=== PATIENT | female | born 1950 | race Caucasian/White ===

== ENCOUNTER → 2019-06-21 | Outpatient (CLI) | payer MEDICARE, OTHER, SELFPAY | PROVIDERS: Family Provider Electrodiagnostic Medicine; Visit Provider Electrodiagnostic Medicine | DX: M85.80 Other specified disorders of bone density and structure, unspecified site (principal); Z78.0 Asymptomatic menopausal state | CPT/HCPCS: 77080 ==

== ENCOUNTER → 2019-08-09 09:00 | Outpatient (BNVA) | payer MEDICARE, OTHER, SELFPAY | PROVIDERS: Family Provider Electrodiagnostic Medicine; PCP Electrodiagnostic Medicine; Visit Provider Urology | DX: N39.0 Urinary tract infection, site not specified (principal); B37.3 Candidiasis of vulva and vagina | CPT/HCPCS: 81001 ==

== ENCOUNTER 2020-01-07 08:28 | Outpatient (CLI) | payer MEDICARE, OTHER, SELFPAY ==
--- NOTE | 2020-01-07 08:32 | MM_ITS ---
WS: [id number] Bilateral screening digital mammogram, 01/07/2020 Clinical Data: SCREENING Comparison: 09/14/2018, 07/09/2017, 12/11/2015, 11/08/2014, 10/26/2014, 08/25/2013, 06/25/2012, 04/01/201103/22, 03/21/2009, 03/04/2008, 02/24/2007. Findings: The breast parenchymal pattern shows fibroglandular tissue No spiculated masses or clustered calcific ations are seen. There are no secondary signs of carcinoma. MM/[id number] Impression: 1. Negative bilateral mammogram unchanged. 2. Recommend annual screening mammograms. BIRADS: 1-Negative FOLLOW UP: 1 Year Follow-up The CAD thread checker was used.
== END 2020-01-07 08:29 | disposition home or self-care (01) ==
LOC: RADSHAW 08:29
PROVIDERS: PCP Electrodiagnostic Medicine; Visit Provider Electrodiagnostic Medicine
DX: Z12.31 Encounter for screening mammogram for malignant neoplasm of breast (principal)
CPT/HCPCS: 77067

== ENCOUNTER 2020-02-27 06:44 | Emergency (ER) | payer MEDICARE, OTHER, SELFPAY ==
[2020-02-27 06:50] VITALS: BP 123/72; PULSE 77; RESP 18; TEMP 37.4; O2SAT 96; BMI 24.0
[2020-02-27 06:59] VITALS: BP 127/73; PULSE 73; RESP 18; TEMP 37.4; O2SAT 95
--- NOTE | 2020-02-27 06:59 | XRR_ITS ---
PROCEDURE INFORMATION: Exam: XR Chest, 1 View Exam date and time: 02/27/2020 7:01 AM Age: 70 years old Clinical indication: Fever; Patient HX: Flu like symptoms; Additional info: Cough TECHNIQUE: Imaging protocol: XR of the chest Views: 1 view. COMPARISON: CT chest w con* [id number] 08/02/2015 8:29 AM FINDINGS: Lungs: No consolidation. Pleural space: No significant visible pleural effusion. No pneumothorax. Heart/Mediastinum: No significant cardiomegaly. Bones/joints: No acute finding. XR/XR chest 1V portable [id number] IMPRESSION: No pulmonary consolidation to suggest pneumonia.
--- NOTE | 2020-02-27 07:01 | W.ED.GENADLT ---
HPI - General Adult General: Chief complaint: Headache Stated complaint: COVID SYMPTOMS Time Seen by Provider: 02/27/20 06:49 Source: patient Mode of arrival: ambulatory Limitations: no limitations History of Present Illness: HPI narrative: Mrs. Burns is a nice 70-year-old female who comes in complaining of flulike symptoms. Her symptoms started yesterday afternoon and consisted of headache, fever, sore throat, dry cough and diffuse malaise. Patient is concerned about a COVID-19 infection as she has been exposed although remotely several days ago to someone who did test positive for the virus. The patient denies any neck pain or stiffness, production with her cough, nausea or vomiting or abdominal pain. She does not report any type of urinary symptoms. Patient's fever got up to 101.9 at home but this resolved with Tylenol. Patient states of all her symptoms just hurt generalized muscle aches and pains are the most pronounced. She denies having any chronic medical problems and does not take any immunosuppressive medications. Other than Tylenol she is not tried anything for her symptoms but states that has helped her feel better. Associated symptoms: Reports malaise; Deny chest pain, confusion, diaphoresis, dyspnea, headache(s), nausea, rash, palpitations, syncope or vomiting Review of Systems Const: Reports: fever(s), chills, body aches, fatigue and malaise; Denies: diaphoresis Eyes: Denies: change in vision, blurry vision, photophobia, eye discomfort, eye discharge or eye redness ENMT: Reports: throat pain; Denies: odynophagia, hoarseness, swelling of lips/tongue, ear or mastoid pain, ear discharge, change in hearing or nasal discharge Card: Denies: chest pain, palpitations, irregular heart rhythm, edema, lightheadedness, syncope, pre-syncope, dyspnea on exertion or orthopnea Resp: Reports: non-productive cough; Denies: dyspnea, productive cough, wheezing, hemoptysis or chest congestion GI: Denies: abdominal pain, nausea, vomiting, hematemesis, coffee ground emesis, heartburn, diarrhea, constipation, GI cramping, hematochezia or melena : Denies: flank pain, dysuria, urinary frequency, urinary urgency or hematuria Musc: Denies: neck pain, back pain, extremity pain, extremity swelling, joint pain, joint swelling, joint redness, joint warmth or joint stiffness Skin/Breast: Denies: rash, pruritus, erythema or skin tenderness Neuro: Denies: headache(s), numbness in extremities, weakness in extremities, sensory changes, lack of coordination, difficulty walking, dizziness, vertigo, confusion, Slurred speech present or seizure-like activity Torey/Lymph: Denies: easy bruising, easy bleeding, petechiae, purpura or enlarged lymph nodes All/Imm: Denies: urticaria, throat swelling, tongue swelling, facial swelling or acute wheezing PFSH ED PFSH: Medical History Recurrent urinary tract infection Yeast vaginitis Family History Father , 86 Cancer Lung Mother Atrial fibrillation Social History Smoking and tobacco status: never smoked Alcohol intake: never Marital status: Current occupational status: retired History of recent travel: No Current gender identity: Female Physical Exam Const: COMMON NORMALS: no acute distress, patient oriented x3, no limitations, healthy appearing and well nourished GENERAL APPEARANCE: cooperative, well kempt and well developed HENMT: COMMON NORMALS: normocephalic, atraumatic, external ears normal, EAC's normal and Normal external nose present HEAD & SCALP: normal to inspection, normocephalic and atraumatic FACE & SINUS: normal facial exam and face symmetric NOSE: Normal external nose present and Normal nares present EXTERNAL EAR: Yes external ears normal EXTERNAL AUDITORY CANAL: EAC's normal MOUTH: Normal oral and palatal mucosa present, lip normal and tongue normal Eye: COMMON NORMALS: Equal, round and reactive pupils present and conjunctivae normal GENERAL EYE: appearance normal, both eyes and all related structures ALIGNMENT: Yes alignment normal PERIORBITAL: periorbital findings normal EYELID: eyelids normal CONJUNCTIVA: Yes conjunctivae normal SCLERA: sclerae normal PUPIL: Yes Equal, round and reactive pupils present Neck/C-Spine: COMMON NORMALS: full ROM, no lymphadenopathy, supple, no meningeal signs and no JVD GENERAL: Yes normal visual inspection and Yes trachea midline Chest: COMMONS NORMALS: normal inspection of the chest and normal palpation of entire chest wall Resp: COMMON NORMALS: normal respiratory effort, No retractions, No use of accessory muscles and clear to auscultation bilaterally EFFORT & INSPECTION: Yes able to speak in complete sentences and Yes symmetric chest movement AUSCULTATION: clear to auscultation bilaterally, no crackles, no rales, no rhonchi and no wheezes Cardio: COMMON NORMALS: no JVD, regular rate, regular rhythm, S1 normal heart sound present and S2 normal heart sound present RATE: regular rate RHYTHM: regular rhythm HEART SOUNDS: S1 normal heart sound present, S2 normal heart sound present, no click, no gallops, no murmurs, no rubs and abnormal split S2 GI: COMMON NORMALS: Soft to palpation and No hepatosplenomegaly present PALPATION: Yes Soft to palpation, No Tenderness to palpation present (GI), No Guarding due to palpation present (GI), No Rigid due to palpation, Yes No hepatosplenomegaly present, No Hernia present, No Palpable mass present and No Pulsatile mass present : COMMON NORMALS: Yes no CVA tenderness BLADDER/KIDNEY EXAM: Yes no CVA tenderness EXTERNAL FEMALE EXAM: No Hernia present Back/Pelvis: COMMON NORMALS: no CVA tenderness, thoracic and lumbar spine normal to inspection, no thoracic nor lumbar tenderness and thoraco-lumbar ROM normal Extremity: COMMON NORMALS: normal to inspection, full ROM, capillary refill normal, no joint enlargement, no clubbing, cyanosis or edema and no calf tenderness Neuro: COMMON NORMALS: patient oriented x3, CN's II-XII intact bilaterally, moves all extremities, no focal motor deficits and no sensory deficits noted MENINGEAL SIGNS: Yes no meningeal signs SPEECH: speech normal Psych: COMMON NORMALS: mental status grossly normal, Normal thought process present, cooperative, normal affect, speech normal and activity/motor behavior normal APPEARANCE: Yes well kempt SPEECH: Yes normal speech THOUGHT PROCESS: Normal thought process present Skin: COMMON NORMALS: no rashes or lesions noted, turgor normal, no jaundice, no petechiae and no mottling GENERAL SKIN EXAM: no rashes or lesions noted and turgor normal Course Vital Signs: Vital signs: Vital Signs Temperature 99.4 F 02/27/20 06:59 Pulse Rate 73 02/27/20 06:59 Respiratory Rate 18 02/27/20 06:59 Blood Pressure 127/73 09/06/20 06:59 Pulse Oximetry 95 09/06/20 06:59 MDM - General Adult MDM Narrative: Medical decision making narrative: Epifanio is a nice 70-year-old female who comes in with generalized malaise, muscle aches and pains, headache, fatigue, sore throat and tiredness. Urinalysis I believe this is unlikely the cause but nonetheless we will treat it. The patient has remote COVID-19 exposure and she agrees that she can go home and quarantine herself until her co-test is resulted. The patient is hemodynamically stable shows no sign of sepsis. Believe she is safe for discharge as she understands we will call her with the results of her cover test. She agrees to return if her symptoms change or worsen but at this time the patient looks overall well and I believe is safe for discharge. Lab Data: Labs: Lab Results 02/27/20 02/27/20 02/27/20 Range/Units 06:50 06:50 06:50 WBC 5.1 (4.0-10.0) 10^3/ uL RBC 4.36 (4.1-5.3) 10^6/u L Hgb 13.2 (11.5-15.3) g/dL Hct 40.2 (37.0-47.0) % MCV 92.2 (81-99) fL MCH 30.3 (28.0-34.0) pg MCHC 32.8 (30.0-36.0) g/dL RDW 12.2 (12.1-15.1) % Plt Count 219 (130-400) 10^3/c mm MPV 8.9 (7.4-10.4) fL Neut % (Auto) 72.7 % Lymph % (Auto) 15.5 % Winston % (Auto) 10.0 % Eos % (Auto) 0.8 % Baso % (Auto) 0.6 % Neut # (Auto) 3.70 (1.8-7.7) 10^3/u L Lymph # (Auto) 0.8 (0.8-4.8) 10^3/u L Winston # (Auto) 0.5 (0.2-0.9) 10^3/u L Eos # (Auto) 0.0 (0.0-0.8) 10^3/u L Baso # (Auto) 0.0 (0.0-0.1) 10^3/u L Nucleated RBC % (a uto) 0 % Nucleated RBCs # 0.0 /100WBC Sodium 139 (136-145) mmol/L Potassium 4.1 (3.5-5.1) mmol/L Chloride 105 (98-107) mmol/L Carbon Dioxide 24 (22-29) mmol/L Anion Gap 14.1 (5-19) BUN 10 (8-23) mg/dL Creatinine 0.8 (0.5-0.9) mg/dL GFR Calculation 71.1 L (90-130) mL/min Glucose 103 (65-115) mg/dL Calculated Osmolal ity 284 L (285-295) mOsm/k g Lactic Acid 0.8 (0.5-2.2) mmol/L Calcium 8.9 (8.5-10.5) mg/dL Magnesium 2.0 (1.7-2.3) mg/dL Total Bilirubin 0.6 (0.15-1.2) mg/dL AST 36 H (0-32) U/L ALT 26 (0-33) U/L Alkaline Phosphata se 108 H (35-105) IU/L Total Protein 7.1 (6.6-8.7) g/dL Albumin 3.9 (3.5-5.2) g/dL Globulin 3.2 (1.3-4.6) g/dL Urine Color (Yellow) Urine Appearance (CLEAR) Urine pH (5-7) Ur Specific Gravit y (1.005-1.030) Urine Protein (Negative) Urine Glucose (UA) (Normal) Urine Ketones (Negative) Urine Blood (Negative) Urine Nitrate (Negative) Urine Bilirubin (NEGATIVE) Urine Urobilinogen (Negative) mg/dL Ur Leukocyte Christy ase (Negative) Urine RBC (0-2) /hpf Urine WBC (0-5) /hpf Ur Squamous Epith Cells (0-5) Amorphous Sediment Urine Bacteria (NONE) Influenza Type A A g (Negative) Influenza Type B A g (Negative) Group A Strep Rapi d (Negative) 02/27/20 02/27/20 02/27/20 Range/Units 07:10 07:10 08:27 WBC (4.0-10.0) 10^3/ uL RBC (4.1-5.3) 10^6/u L Hgb (11.5-15.3) g/dL Hct (37.0-47.0) % MCV (81-99) fL MCH (28.0-34.0) pg MCHC (30.0-36.0) g/dL RDW (12.1-15.1) % Plt Count (130-400) 10^3/c mm MPV (7.4-10.4) fL Neut % (Auto) % Lymph % (Auto) % Winston % (Auto) % Eos % (Auto) % Baso % (Auto) % Neut # (Auto) (1.8-7.7) 10^3/u L Lymph # (Auto) (0.8-4.8) 10^3/u L Winston # (Auto) (0.2-0.9) 10^3/u L Eos # (Auto) (0.0-0.8) 10^3/u L Baso # (Auto) (0.0-0.1) 10^3/u L Nucleated RBC % (a uto) % Nucleated RBCs # /100WBC Sodium (136-145) mmol/L Potassium (3.5-5.1) mmol/L Chloride (98-107) mmol/L Carbon Dioxide (22-29) mmol/L Anion Gap (5-19) BUN (8-23) mg/dL Creatinine (0.5-0.9) mg/dL GFR Calculation (90-130) mL/min Glucose (65-115) mg/dL Calculated Osmolal ity (285-295) mOsm/k g Lactic Acid (0.5-2.2) mmol/L Calcium (8.5-10.5) mg/dL Magnesium (1.7-2.3) mg/dL Total Bilirubin (0.15-1.2) mg/dL AST (0-32) U/L ALT (0-33) U/L Alkaline Phosphata se (35-105) IU/L Total Protein (6.6-8.7) g/dL Albumin (3.5-5.2) g/dL Globulin (1.3-4.6) g/dL Urine Color Yellow (Yellow) Urine Appearance Sl hazy (CLEAR) Urine pH 7 (5-7) Ur Specific Gravit y 1.005 (1.005-1.030) Urine Protein Neg (Negative) Urine Glucose (UA) Norm (Normal) Urine Ketones Negative (Negative) Urine Blood Neg (Negative) Urine Nitrate Negative (Negative) Urine Bilirubin Neg (NEGATIVE) Urine Urobilinogen Norm (Negative) mg/dL Ur Leukocyte Christy ase Trace H (Negative) Urine RBC None (0-2) /hpf Urine WBC 5-10 H (0-5) /hpf Ur Squamous Epith Cells 5-10 H (0-5) Amorphous Sediment Not Reportable Urine Bacteria 2+ H (NONE) Influenza Type A A g Negative (Negative) Influenza Type B A g Negative (Negative) Group A Strep Rapi d Negative (Negative) Imaging Data^: CXR: Attestation: I personally reviewed and interpreted this imaging study as follows: My impression: Possible mild interstitial prominence. No focal infiltrates, no pneumothorax, normal heart size. Discharge Plan Discharge Patient Disposition: Home Clinical Impression: Acute viral syndrome, Acute UTI Condition: Stable Prescriptions: New Cipro 500 mg tablet 500 mg PO BID Qty: 14 RF: 0 No Action sulfamethoxazole-trimethoprim 800-160 mg tablet 1 tab PO BID PRNRF: 0 lutein 10 mg tablet 10 mg PO DAILY RF: 0 SILCA capsule PO DAILY RF: 0 cholecalciferol (vitamin D3) 2,000 unit tablet 2,000 unit PO DAILY RF: 0 mecobalamin (vitamin B12) 5,000 mcg tablet,disintegrating PO DAILY RF: 0 Adult Probiotic 3 billion cell capsule 3,000 mmu cells PO DAILY RF: 0 magnesium oxide 400 mg magnesium capsule 400 mg PO DAILY RF: 0 fluconazole 150 mg tablet 150 mg PO .PRN Qty: 3 RF: 3 Discharge Orders: Discharge Order (Routine); Ordered 02/27/20 Ordered By: Cordelia Lamas Referrals: Ryan Milian DO [Primary Care Provider] - 1-3 days Discharge Diet: Advance as tolerated Discharge Activity: Increase activity as tolerated Patient Instructions: Viral Syndrome (ED) Activity Restrictions/Additional Instructions: Please return to the ER immediately for any of the signs or symptoms listed on your discharge instruction sheets, worsening/changing of your symptoms, you are not getting better as quickly as expected, or for ANY other cause or concerns. Please return to the ER for uncontrolled fever, vomiting, worsening of your symptoms, or for any other cause for concern. We will call you to inform you of the results are not COVID-19 test. Keep yourself at home and quarantined and away from others until you get the results of your test. The results of your testing could take 48 to 72 hours to result. Coding Level of Care Code ED Foreign Food Cook Specialty for Chg Fwd Exam Comprehensive
[2020-02-27] MEDS: sodium chloride 0.9% 1,000 ML 999 ML IV (07:06)
[2020-02-27 07:16] LABS: Basophils % 0.6 %; Eosinophils % 0.8 %; Hematocrit 40.2 % (37.0-47.0); Hemoglobin 13.2 g/dL (11.5-15.3); Lymphocytes # 0.8 10^3/uL (0.8-4.8); Lymphocytes % 15.5 %; Mean Corpuscular HGB Conc 32.8 g/dL (30.0-36.0); Mean Corpuscular Hemoglobin 30.3 pg (28.0-34.0); Mean Corpuscular Volume 92.2 fL (81-99); Mean Platelet Volume 8.9 fL (7.4-10.4); Monocytes # 0.5 10^3/uL (0.2-0.9); Neutrophils % 72.7 %; Nucleated Red Blood Cells % 0 %; Platelet Count 219 10^3/cmm (130-400); Red Blood Count 4.36 10^6/uL (4.1-5.3); Red Cell Distribution Width 12.2 % (12.1-15.1); White Blood Count 5.1 10^3/uL (4.0-10.0)
[2020-02-27 07:25] LABS: Alanine Aminotransferase 26 U/L (0-33); Albumin Level 3.9 g/dL (3.5-5.2); Alkaline Phosphatase 108 IU/L (35-105); Anion Gap 14.1 (5-19); Aspartate Amino Transferase 36 U/L (0-32); Blood Urea Nitrogen 10 mg/dL (8-23); Calcium 8.9 mg/dL (8.5-10.5); Carbon Dioxide 24 mmol/L (22-29); Chloride 105 mmol/L (98-107); Creatinine Clr Calc Pharmacy 61.0009; Globulin 3.2 g/dL (1.3-4.6); Glomerular Filtration Rate 71.1 mL/min (90-130); Glucose 103 mg/dL (65-115); Osmolality Calculated 284 mOsm/kg (285-295); Potassium 4.1 mmol/L (3.5-5.1); Sodium 139 mmol/L (136-145); Total Bilirubin 0.6 mg/dL (0.15-1.2); Total Protein 7.1 g/dL (6.6-8.7)
[2020-02-27 07:26] LABS: Lactic Sepsis W/Reflex 0.8 mmol/L (0.5-2.2)
[2020-02-27 07:34] LABS: Rapid Strep A Test Negative (Negative)
[2020-02-27 08:05] LABS: Influenza A by IFA Negative (Negative); Influenza B by IFA Negative (Negative)
[2020-02-27 08:34] LABS: Bilirubin Urine Neg (NEGATIVE); Blood Urine Neg (Negative); Glucose Urine UA Norm (Normal); Ketones Urine Negative (Negative); Leukocyte Esterase Urine Trace (Negative); Nitrate Urine Negative (Negative); Protein Urine Neg (Negative); Specific Gravity, Urine 1.005 (1.005-1.030); Urine Appearance SL Hazy (CLEAR); Urine Color Yellow (Yellow); Urobilinogen Urine Norm (Negative); pH Urine 7 (5-7)
[2020-02-27 08:39] LABS: Add Urine Culture? Yes; Bacteria Urine 2+
[2020-02-27] MEDS: cefTRIAXone 1,000 MG in sodium chloride 0.9% (plus) 50 ML 100 MG IV (08:49)
[2020-02-27 09:02] VITALS: BP 138/74; PULSE 73; RESP 18; O2SAT 93
[2020-02-27 09:23] VITALS: BP 130/74; PULSE 70; RESP 18; TEMP 36.9; O2SAT 95
[2020-02-29 13:27] LABS: Quest SARS-CoV-2 RNA NOT DETECTED (NOT DETECTED)
--- NOTE | 2020-02-29 16:09 | PC.NURSE ---
Pt contacted about negative COVID test.
== END 2020-02-27 09:29 | disposition home or self-care (01) ==
PROVIDERS: Emergency Provider Emergency Medicine; PCP Electrodiagnostic Medicine
DX: B34.9 Viral infection, unspecified (principal); N39.0 Urinary tract infection, site not specified; Z87.440 Personal history of urinary (tract) infections
CPT/HCPCS: 12345; 71045; 80053; 81001; 83605; 83735; 85025; 87040; 87081; 87086; 87635; 87804; 87880; 96365; 99284; J0696; J7030

== ENCOUNTER → 2020-10-04 13:00 | Outpatient (BNVA) | payer MEDICARE, OTHER, SELFPAY | PROVIDERS: PCP Electrodiagnostic Medicine; Visit Provider Urology | DX: N39.0 Urinary tract infection, site not specified (principal); B37.3 Candidiasis of vulva and vagina | CPT/HCPCS: 81003 ==

== ENCOUNTER 2021-01-12 14:08 | Outpatient (CLI) | payer MEDICARE, OTHER, SELFPAY ==
--- NOTE | 2021-01-12 14:14 | MM_ITS ---
WS: [id number] BILATERAL DIGITAL SCREENING MAMMOGRAPHY WITH CAD CLINICAL INFORMATION: SCREENING HISTORY: Screening mammogram. No current complaints. COMPARISON: January 07, 2020 TECHNIQUE: Bilateral CC and MLO views. FINDINGS: Scattered fibroglandular densities bilaterally. No suspicious focal mass, asymmetry, calcifications, or architectural distortion. No evidence of malignancy. Benign calcification left breast. MM/[id number] IMPRESSION: BI-RADS: 2-Benign FOLLOW UP: 1 Year Follow-up Recommend return to annual screening mammography.
== END 2021-01-12 14:09 | disposition home or self-care (01) ==
LOC: RADSHAW 14:13
PROVIDERS: PCP Electrodiagnostic Medicine; Visit Provider Electrodiagnostic Medicine
DX: Z12.31 Encounter for screening mammogram for malignant neoplasm of breast (principal)
CPT/HCPCS: 77067

== ENCOUNTER 2021-06-25 13:59 | Outpatient (CLI) | payer MEDICARE, OTHER, SELFPAY ==
--- NOTE | 2021-06-25 14:05 | XR_ITS ---
WS: [id number] SCREENING DEXA SCAN [employer] CLINICAL INFORMATION: PREVENTIVE HEALTH CARE, OSTEOPENIA COMPARISON: 2019 FINDINGS: The L1-L4 bone mineral density measures 0.901 g/cm2. This corresponds to a T score score of -2.3 and Z score of -0.7. Left femoral neck bone mineral density measures 0.728 g/cm2. This corresponds to a T score of -2.2 an d Z score of -0.8. Right femoral neck bone mineral density measures 0.774 g/cm2. This corresponds to a T score -1.9of an d Z score of -0.4. Mean femoral neck bone mineral density measures 0.751 g/cm2. This corresponds to a T score of -2.0 an d Z score of -0.6. XR/XR DEXA axial skeleton* [id number] IMPRESSION: Osteopenia Patient's FRAX calculated 10 year probability for major osteoporotic fracture i s 14.5 % and osteoporotic hip fracture is 3.8%.
== END 2021-06-25 14:00 | disposition home or self-care (01) ==
PROVIDERS: PCP Electrodiagnostic Medicine; Visit Provider Electrodiagnostic Medicine
DX: Z00.00 Encounter for general adult medical examination without abnormal findings (principal); M85.80 Other specified disorders of bone density and structure, unspecified site
CPT/HCPCS: 77080

== ENCOUNTER 2022-02-07 10:16 | Outpatient (CLI) | payer MEDICARE, OTHER, SELFPAY ==
--- NOTE | 2022-02-07 10:22 | MM_ITS ---
WS: [id number] Bilateral screening 3D tomosynthesis digital mammogram, 02/07/2022 Clinical Data: SCREENING Comparison: 01/12/2021, 01/07/2020, 09/14/2018, 07/09/2017, 12/11/2015, 11/08/2014, 10/26/2014, 08/25/2013, 06/25, 04/01/2011, 03/22/2010, 03/21/2009, 03/04/2008, 02/24/2007. Findings: The breast parenchymal pattern shows fibroglandular tissue. No spiculated masses or clustered calcifi cations are seen. There are no secondary signs of carcinoma. MM/[place] [id number] Impression: 1. Negative bilateral mammogram unchanged. 2. Recommend annual screening mammograms. BIRADS: 1-Negative FOLLOW UP: 1 Year Follow-up The CAD bag checker was used.
== END 2022-02-07 10:17 | disposition home or self-care (01) ==
LOC: RAD 10:17
PROVIDERS: PCP Electrodiagnostic Medicine; Visit Provider Electrodiagnostic Medicine
DX: Z12.31 Encounter for screening mammogram for malignant neoplasm of breast (principal)
CPT/HCPCS: 77063; 77067

== ENCOUNTER → 2022-07-29 07:46 | Outpatient (BNVA) | payer SELFPAY | PROVIDERS: PCP Electrodiagnostic Medicine; Visit Provider Electrodiagnostic Medicine | DX: Z13.6 Encounter for screening for cardiovascular disorders (principal) | CPT/HCPCS: 80061; 82947; 83036 ==

== ENCOUNTER 2023-02-25 08:21 | Outpatient (CLI) | payer MEDICARE, SELFPAY ==
--- NOTE | 2023-02-25 08:24 | MM_ITS ---
WS: [id number] BILATERAL 3D TOMOSYNTHESIS DIGITAL SCREENING MAMMOGRAPHY WITH CAD CLINICAL INFORMATION: SCREENING HISTORY: Screening mammogram. No current complaints. COMPARISON: 2021 TECHNIQUE: Bilateral CC and MLO views. FINDINGS: Scattered fibroglandular densities bilaterally. No suspicious focal mass, asymmetry, calcifications, or architectural distortion. No evidence of malignancy. Lucent centered calcification LEFT breast. IMPRESSION: MM/[id number] BI-RADS: 2-Benign FOLLOW UP: 1 Year Follow-up Recommend return to annual screening mammography.
== END 2023-02-25 08:22 | disposition home or self-care (01) ==
PROVIDERS: PCP Electrodiagnostic Medicine; Visit Provider Electrodiagnostic Medicine
DX: Z12.31 Encounter for screening mammogram for malignant neoplasm of breast (principal)
CPT/HCPCS: 77063; 77067

== ENCOUNTER 2024-02-18 12:42 | Outpatient (CLI) | payer MEDICARE, SELFPAY ==
--- NOTE | 2024-02-18 12:51 | XR_ITS ---
WS: [id number] DEXA (DUAL ENERGY X-RAY ABSORPTIOMETRY) Bone mineral density was performed using a [employer] machine. HISTORY: OSTEOPOROSIS COMPARISON: 06/25/2021 Lumbar spine BMD (L1-L4): 0.867 g/cm2 T score: -2.6 Z score: -0.8 Total hip BMD: Left: 0.731 g/cm2. T score: -2.2 Z score: -0.5 Right: 0.754 g/cm2. T score: -2.0 Z score: -0.3 10 year probability of a major osteoporotic fracture is 17.0%. Compared to the prior study from 06/25/2021. Lumbar spine bone mineral density has decreased by 3.8%. Bilateral hips bone mineral density has decreased by 1.2%. XR/XR DEXA axial skeleton* [id number] IMPRESSION: OSTEOPOROSIS based upon the WHO classification for females. Significant decrease in bone mineral density within the lumbar spine since the prior study. No significant change of bone mineral density in the hips.
== END 2024-02-18 12:43 | disposition home or self-care (01) ==
LOC: RAD 12:44
PROVIDERS: PCP Electrodiagnostic Medicine; Visit Provider Electrodiagnostic Medicine
DX: M81.0 Age-related osteoporosis without current pathological fracture (principal)
CPT/HCPCS: 77080

== ENCOUNTER 2024-03-18 07:49 | Outpatient (CLI) | payer MEDICARE, SELFPAY ==
--- NOTE | 2024-03-18 07:54 | MM_ITS ---
WS: [id number] Bilateral screening 3D tomosynthesis digital mammogram, 03/18/2024 8:01 AM Clinical Data: SCREENING Comparison: 02/25/2023, 02/07/2022, 01/12/2021, 01/07/2020, 09/14/2008, 07/09/2017, 12/11/2015, 11/08/2014, 10/26/2014, 08/25/2013, 06/25/2012, 04/01/2011, 03/22/2010, 03/21/2009, 03/04/2008, 02/24/2007. Findings: No spiculated masses or clustered calcifications are seen. There are no secondary signs of carcinoma . The breast parenchymal pattern shows fibroglandular tissue. MM/MM [facility] BI tomosynthesis [id number] Impression: Negative bilateral mammogram unchanged. Recommend annual screening mammograms. BIRADS: 1 - Negative. FOLLOW UP: 1 Year Follow-up DENSITY: There are scattered areas of fibroglandular density. The CAD checkerer hand was used
== END 2024-03-18 07:50 | disposition home or self-care (01) ==
LOC: RAD 07:49
PROVIDERS: PCP Electrodiagnostic Medicine; Visit Provider Electrodiagnostic Medicine
DX: Z12.31 Encounter for screening mammogram for malignant neoplasm of breast (principal); R92.333 Mammographic heterogeneous density, bilateral breasts
CPT/HCPCS: 77063; 77067

== ENCOUNTER 2025-03-21 13:47 | Outpatient (CLI) | payer MEDICARE, SELFPAY ==
--- NOTE | 2025-03-21 13:53 | MM_ITS ---
WS: [id number] BILATERAL 3D TOMOSYNTHESIS DIGITAL SCREENING MAMMOGRAPHY WITH CAD CLINICAL INFORMATION: SCREENING HISTORY: Screening mammogram. No current complaints. COMPARISON: 2023 TECHNIQUE: Bilateral CC and MLO views. FINDINGS: Scattered fibroglandular densities bilaterally. No suspicious focal mass, asymmetry, calcifications, or architectural distortion. No evidence of malignancy. A few incidental punctate and lucent centered calcifications. MM/MM scr tomosynthesis [id number] IMPRESSION: DENSITY: There are scattered areas of fibroglandular density. BI-RADS: 2 - Benign. FOLLOW UP: 1 Year Follow-up Recommend return to annual screening mammography.
== END 2025-03-21 13:48 | disposition home or self-care (01) ==
LOC: RAD 13:49
PROVIDERS: PCP Electrodiagnostic Medicine; Visit Provider Electrodiagnostic Medicine
DX: Z12.31 Encounter for screening mammogram for malignant neoplasm of breast (principal); R92.323 Mammographic fibroglandular density, bilateral breasts; R92.1 Mammographic calcification found on diagnostic imaging of breast
CPT/HCPCS: 77063; 77067